=== PATIENT | female | born 1980 | race Caucasian/White ===

== ENCOUNTER 2021-01-18 13:06 | Emergency (ER) | payer OTHER ==
[~2021-01-18] VITALS: Ht 170.2 cm; Wt 104.3 kg
[~2021-01-18 13:06] MED LIST: AMITRIPTYLINE100 MG PO; BUSPIRONE HCL15 M1 PO; DESVENLAFAXINE100 M3 PO; PROAMATINE5 MG PO; ROPINIROLE HCL1 MG PO; TOPROL XL 25MG25 MG PO; ZOLOFT50 MG PO
[2021-01-18 14:52] LABS: BASOPHIL 0.5 % (0-2); EOSINOPHIL 2.4 % (0-5); HCT 46.3 % (37.0-47.0); HGB 15.2 g/dl (12.5-16.0); LYMPHOCYTE 36.8 % (15-48); MCH 27.9 pg (25.0-31.0); MCHC 32.8 g/dL (32.0-36.0); MCV 85.1 fL (78.0-100.0); MONOCYTE 6.4 % (0-12); MPV 9.5 fL (6.0-9.5); NEUTROPHIL 53.6 % (41-80); NRBC 0; PLT 297 K/uL (150-400); RBC 5.44 M/uL (4.20-5.40); RDW 13.3 % (11.5-14.0); WBC 9.2 K/uL (4.0-10.5)
[2021-01-18 15:02] LABS: INR 0.97 (0.9-1.2); PROTHROMBIN TIME 12.3 SECONDS (11.8-13.4); PTT 26.3 SECONDS (24.4-34.7)
[2021-01-18 15:15] LABS: ALBUMIN 3.8 g/dL (3.4-5.0); BILIRUBIN - TOTAL 0.4 mg/dL (0.2-1.0); BUN/CREAT RATIO (CALC) 12.5 RATIO; CREATININE 0.96 mg/dL (0.51-0.95); GLOBULIN (CALCULATION) 3.5 g/dL; POTASSIUM 3.9 mmol/L (3.5-5.1); TOTAL PROTEIN 7.3 g/dL (6.4-8.2)
[2021-01-18 17:19] LABS: BILIRUBIN 1+ mg/dL (NEGATIVE); BLOOD NEGATIVE Ery/uL (NEGATIVE); CLARITY CLEAR (CLEAR); COLOR YELLOW (YELLOW); GLUCOSE (U) NORMAL (NORMAL); LEUKOCYTES NEGATIVE Leu/uL (NEGATIVE); NITRITE NEGATIVE (NEGATIVE); PROTEIN NEGATIVE (NEGATIVE); SPECIFIC GRAVITY >=1.030 (1.001-1.030); UROBILINOGEN 0.2 mg/dL (0.2-1.0)
[2021-01-18 17:28] LABS: AMPHETAMINES NEGATIVE (NEGATIVE); BARBITURATES NEGATIVE (NEGATIVE); ECSTASY (MDMA) NEGATIVE (NEGATIVE); MARIJUANA (THC) NEGATIVE (NEGATIVE); METHADONE NEGATIVE (NEGATIVE); OPIATES NEGATIVE (NEGATIVE); OXYCODONE NEGATIVE (NEGATIVE)
[2021-01-18 20:38] LABS: FT4 (FREE T4) 1.1 ng/dL (0.76-1.46)
== END 2021-01-19 00:08 | disposition home or self-care (01) ==
LOC: FER 13:06
PROVIDERS: Internal Medicine; Nurse Practitioner Family
DX: U07.1 COVID-19 (principal); R07.89 Other chest pain; R00.2 Palpitations; I10 Essential (primary) hypertension; Z23 Encounter for immunization; Z98.890 Other specified postprocedural states; Z88.8 Allergy status to other drugs, medicaments and biological substances; Z88.1 Allergy status to other antibiotic agents; Z87.09 Personal history of other diseases of the respiratory system
CPT/HCPCS: 36415; 71045; 71275; 80053; 80305; 81003; 84439; 84443; 84484; 85025; 85610; 85730; 93005; J2060; J2270; J7030; M0245; Q0245; Q9967; U0002